=== PATIENT | male | born 1955 | race Caucasian/White ===

== ENCOUNTER 2017-04-02 08:17 | Outpatient (CLI) | payer OTHER | END 2017-04-02 08:20 | LOC: LAB 08:17 | PROVIDERS: ATTEND Nurse Practitioner Family | DX: R19.4 Change in bowel habit (principal); A04.72 Enterocolitis due to Clostridium difficile, not specified as recurrent | CPT/HCPCS: 82270; 87045; 87046; 87177; 87209; 87427; 87493 ==